=== PATIENT | male | born 1950 | race Caucasian/White ===

== ENCOUNTER 2022-02-09 07:30 | Outpatient (RCR) | payer MEDICARE, BC, SELFPAY ==
--- NOTE | 2022-02-09 12:43 | PT.OPEX ---
PT [place] Outpatient Eval PT [facility] Outpatient Eval Start: 02/09/22 12:26 Freq: Status: Active Protocol: Document 02/09/22 12:26 MANOJ (Rec: 02/09/22 12:40 MANOJ [id number]) E-signed By Kaitlynn Covington DPT Physical Therapy Outpatient Evaluation Insurance Information Recert Due Date 05/10/22 Insurance Name Medicare B Medical Diagnosis L hip bursitis Treating Diagnosis L hip pain, limited tolerance for extended standing/walking/ stairs Subjective Subjective Patient reports L hip pain since early Dec. States he started wearing new inserts and new shoes to help with his neuropathy and that's when he started to notice more L lateral hip pain. He switched back to his other shoes and stopped using the inserts and his L hip pain has been improving. He is walking better and able to do reciprocal stairs again. head filter press tender with pressure to his outer hip. He uses tylenol for general OA aches and pains. Has been using a heating pad to L lateral hip the last month and that has been helpful as well. Pain range 0-2/10. Sleep is interrupted at baseline - no change with his recent hip pain issues. Date of Last Physician Visit 12/29/21 Assessment Assessment/Impression Patient is a 72 year old male with L hip pain, limited tolerance for extended standing/walking/stairs. Pain range 0-2/10. Patient reports flare up of L hip pain when he started using new inserts and new shoes. States he switched back to his old shoes and the hip pain has been decreasing. He remains tender with palpation L lateral hip and tight/tender along L ITB. Patient with general core/hip/glut weakness . Able to initiate some stretching, strengthening exercises this session. Instructed in soft tissue massage using hand, tennis ball, or rolling pin for his home program. Patient to continue with ice/heat as needed. Patient would benefit from skilled PT for pain/sx management, improved core/hip/ glut strength, and establishment of HEP. Plan of Care Rehabilitation Potential Good Physical Therapy Goals 1. Decrease/maintain L hip/ thigh pain to less than/equal to 3/10 with daily activities and with the progression of PT activities over the next 3-4 weeks. 2. Improve hip/glut/LE/core strength over the next 6-8 weeks for return to transfers with ease, normal gait, reciprocal stair negotiation, and extended standing/walking without flare up of pain. 3. Patient will be I with HEP within 8 weeks for progression toward above goals, ongoing self management of pain/sx, ongoing self improvements in L hip ROM/mobility/strength, and for return to daily activities/standing/walking without flare up of pain. Coordination/Communication With Referral Source Treatment Plan/Direct Interventions Manual Therapy,Therapeutic Exercises Frequency/Duration 1x/week Patient Will Be Discharged From Therapy Completion of LTG(s),Skills Plateau,Independent w/HEP, Independently Progressing Evaluation Billing Untimed Code Treatment Minutes 23 Complexity Low Certification Information Initial Certification Date 02/09/22 Ending Certification Date 05/10/22 Provider Signature Shows Agreement With POC & Medical Necessity Physician Signature & Date Requested Please Sign/Date Here Physician Comment/Change : Physician NPI Number #
== END 2022-04-08 11:21 | disposition home or self-care (01) ==
PROVIDERS: PCP Family Medicine; Visit Provider Orthopaedic Surgery
DX: M70.72 Other bursitis of hip, left hip (principal); Z51.89 Encounter for other specified aftercare
CPT/HCPCS: 97110; 97161

== ENCOUNTER 2024-12-24 10:00 | Outpatient (RCR) | payer MEDICARE, BC, SELFPAY | END 2024-12-24 10:39 | disposition home or self-care (01) | PROVIDERS: PCP Family Medicine; Visit Provider Physician Assistant | DX: G60.8 Other hereditary and idiopathic neuropathies (principal); R26.9 Unspecified abnormalities of gait and mobility; R26.81 Unsteadiness on feet; M62.81 Muscle weakness (generalized); Z51.89 Encounter for other specified aftercare | CPT/HCPCS: 97110; 97112; 97140; 97161; 97530 ==